=== PATIENT | female | born 1975 | race Caucasian/White ===

== ENCOUNTER 2025-01-04 15:28 | Emergency (ER) | payer OTHER, SELFPAY ==
[2025-01-04 15:41] VITALS: BP 113/73
[2025-01-04 16:22] LABS: ALT (SGPT) 219 U/L (0-35); AST (SGOT) 121 U/L (14-36); Alkaline Phosphatase 142 U/L (38-126); Blood Urea Nitrogen 14 mg/dl (7-17); Calcium 9.1 mg/dl (8.4-10.2); Carbon Dioxide 27 mmol/L (22-30); Chloride 109 mmol/L (98-107); Glucose 126 mg/dl (70-99); Potassium 4.2 mmol/L (3.5-5.1); Sodium 143 mmol/L (135-145); Total Bilirubin 0.7 mg/dl (0.2-1.3); Total Protein 6.7 g/dl (6.3-8.2); eGFR > 60.00
[2025-01-04 16:45] LABS: % Basophils 0.9 % (0-2); % Eosinophils 0.4 % (0-6); % Immature Granulocytes 0.4 % (0-0.5); % Lymphocytes 66.4 % (20.5-51.1); % Monocytes 4.9 % (1.7-9.3); Absolute Basophils 0.1 10^3/uL (0-0.2); Absolute Lymphocytes 3.8 10^3/uL (1.2-3.4); Absolute Monocytes 0.3 10^3/uL (0.1-0.6); Absolute Neutrophils 1.5 10^3/uL (1.4-6.5); Hematocrit 36.2 % (37.0-47.0); Hemoglobin 12.6 g/dL (12.0-16.0); Mean Corp Hgb Conc. 34.8 g/dL (33.0-37.0); Mean Corpuscular Hgb 30.7 pg (27.0-31.0); Mean Corpuscular Volume 88.3 fL (81.0-99.0); Mean Platelet Volume 8.8 fL (7.4-10.4); Nucleated Red Blood Cells % 0 %; Platelet Count 258 10^3/uL (130-400); Red Cell Dist. Width 13.2 % (11.5-14.5); White Blood Cell Count 5.7 10^3/uL (4.8-10.8)
[2025-01-04 17:40] LABS: Troponin I < 0.012 ng/ml
[2025-01-04 19:03] VITALS: BP 97/76
[2025-01-04 19:07] VITALS: BMI 27.1
[2025-01-04 19:16] VITALS: BP 113/73
--- NOTE | 2025-01-04 19:24 | ED.GENMED ---
History of Present Illness
<Ricardo Burns PA-C - Last Filed: 01/04/25 22:36>
General
Chief Complaint: Breathing Problem
Source: patient
Exam Limitations: none
Time Seen by Provider: 01/04/25 18:58
History of Present Illness
History of Present Illness:
49-year-old female presents with extreme fatigue headache shortness of breath over the past 3 weeks. She returned from [place] about the time this started. She has seen her family doctor. Liver functions were noted to be slightly elevated. She
had a hepatitis profile drawn as an outpatient which was normal. She was tested for Lyme strep and mono COVID and flu which were negative. She did have an elevated D-dimer performed as an outpatient which was high and was told to come here for
evaluation. She denies chest pain. No fever. No rashes or tick bites however she was tested for Lyme which was negative. She denies leg swelling or calf pain.
Past History
<Ricardo Burns PA-C - Last Filed: 01/04/25 22:36>
Past History
ED Past Medical History: None
ED Past Surgical History: None
Phy Exam
<ABEBE Beasley Last Filed: 01/04/25 22:36>
Physical Exam
Physical Exam:
General: Well-appearing female no acute respiratory distress
HEENT: Normocephalic atraumatic
Heart: No murmurs regular
Lungs: Clear no wheeze
Extremities: No cyanosis or edema
Skin: Warm no rash
Scores
<ABEBE Beasley Last Filed: 01/04/25 22:36>
Heart Failure Risk
Heart Failure Risk Score: Not Applicable
Course
<ABEBE Beasley Last Filed: 01/04/25 22:36>
Orders/Labs/Results
Orders:
Orders
01/04/25 15:47
CT Chest PE Study Stat
Comment:
Reason For Exam: D-Dimer
01/04/25 15:48
Electrocardiogram (*1) Urgent
Reason for Study: Shortness of Breath
EKG- Treatment ONCE
01/04/25 15:53
Complete Blood Count/With Diff Urgent
Comprehensive Metabolic Panel Urgent
Troponin I Urgent
01/04/25 19:21
US Abdomen Complete/Upper Urgent
Comment:
Reason For Exam: elevated LFT
01/04/25 19:[address] Non Medication Order As Directed
Physician Order: ambulatory pulse ox
Above order entered?: Yes
01/04/25 20:41
Ibuprofen [Motrin] 600 mg PO NOW STA
Abnormal Lab Results
01/04/25
15:53
RBC 4.10 L 10^6/uL
(4.20-5.40)
Hct 36.2 L %
(37.0-47.0)
Absolute Lymphs (auto) 3.8 H 10^3/uL
(1.2-3.4)
Neutrophils % 27.0 L %
(42.2-75.2)
Lymphocytes % 66.4 H %
(20.5-51.1)
Chloride 109 H mmol/L
(98-107)
Creatinine 1.1 H mg/dL
(0.6-1.0)
Glucose 126 H mg/dl
(70-99)
AST 121 H U/L
(14-36)
ALT 219 H U/L
(0-35)
Alkaline Phosphatase 142 H U/L
(38-126)
01/04/25 15:53
01/04/25 15:53
Vital Signs
Initial and Last Documented VS:
Initial Vital Signs
Temp Pulse Resp BP Pulse Ox
98.7 F 79 18 113/73 98
01/04/25 15:41 01/04/25 15:41 01/04/25 15:41 01/04/25 15:41 01/04/25 15:41
Last Documented Vital Signs
Temp Pulse Resp BP Pulse Ox
98.7 F 66 19 113/73 100
01/04/25 15:41 01/04/25 19:45 01/04/25 19:45 01/04/25 19:16 01/04/25 19:45
<Greg Swan MD - Last Filed: 01/04/25 22:19>
Orders/Labs/Results
Orders:
Orders
01/04/25 15:47
CT Chest PE Study Stat
Comment:
Reason For Exam: D-Dimer
01/04/25 15:48
Electrocardiogram (*1) Urgent
Reason for Study: Shortness of Breath
EKG- Treatment ONCE
01/04/25 15:53
Complete Blood Count/With Diff Urgent
Comprehensive Metabolic Panel Urgent
Troponin I Urgent
01/04/25 19:21
US Abdomen Complete/Upper Urgent
Comment:
Reason For Exam: elevated LFT
01/04/25 19:[address] Non Medication Order As Directed
Physician Order: ambulatory pulse ox
Above order entered?: Yes
01/04/25 20:41
Ibuprofen [Motrin] 600 mg PO NOW STA
Abnormal Lab Results
01/04/25
15:53
RBC 4.10 L 10^6/uL
(4.20-5.40)
Hct 36.2 L %
(37.0-47.0)
Absolute Lymphs (auto) 3.8 H 10^3/uL
(1.2-3.4)
Neutrophils % 27.0 L %
(42.2-75.2)
Lymphocytes % 66.4 H %
(20.5-51.1)
Chloride 109 H mmol/L
(98-107)
Creatinine 1.1 H mg/dL
(0.6-1.0)
Glucose 126 H mg/dl
(70-99)
AST 121 H U/L
(14-36)
ALT 219 H U/L
(0-35)
Alkaline Phosphatase 142 H U/L
(38-126)
01/04/25 15:53
01/04/25 15:53
Vital Signs
Initial and Last Documented VS:
Initial Vital Signs
Temp Pulse Resp BP Pulse Ox
98.7 F 79 18 113/73 98
01/04/25 15:41 01/04/25 15:41 01/04/25 15:41 01/04/25 15:41 01/04/25 15:41
Last Documented Vital Signs
Temp Pulse Resp BP Pulse Ox
98.7 F 66 19 113/73 100
01/04/25 15:41 01/04/25 19:45 01/04/25 19:45 01/04/25 19:16 01/04/25 19:45
Beckielt;Ricardo Burns PA-C - Last Filed: 01/04/25 22:36>
MDM/Problems Addressed
Differential Diagnosis Includes:
Shortness of breath fatigue headache. Differential could include viral illness versus pneumonia versus PE. Patient did have an elevated D-dimer as an outpatient this week. Check for electrolyte abnormality or anemia.
Labs reviewed notable findings include elevated LFTs. When compared to outpatient labs done last week these are slightly more elevated than last week. I did see a negative hepatitis profile drawn as an outpatient. D-dimer was elevated as an
outpatient which prompted PE study today this was negative for central pulmonary embolism. No clinical signs of heart failure. Ultrasound abdomen pending given the elevated LFTs.
<Ricardo Burns PA-C - Last Filed: 01/04/25 22:36>
*Critical Care Note
Total Time (30-74mins, 75-104mins- exclusive of procedures): Not Applicable
<Ricardo Burns PA-C - Last Filed: 01/04/25 22:36>
Update Note
Update Note:
Ultrasound abdomen shows potential fatty liver but no evidence of cholecystitis. Patient remained stable without hypoxia or tachycardia. No distress otherwise. Symptoms have been ongoing for 3 weeks. Given the shortness of breath and dyspnea
with exertion will refer patient to cardiology as outpatient. No indication for any admission at this time. Discussed with emergency room attending who saw the patient as well
ED Attending Note
<Ricardo Burns PA-C - Last Filed: 01/04/25 22:36>
-
Portions of this chart may have been created with voice recognition software.� Occasional wrong word or��sound alike� substitutions may have occurred due to the inherent limitations of voice recognition software.
<Greg Swan MD - Last Filed: 01/04/25 22:19>
ED Attending Note
Patient seen and examined by attending physician: Yes
I performed the substantive portion of visit, reviewed & personally made and approve the management plan that is documented in note by myself or HERACLIO.: Yes
ED Attending Note:
49-year-old female complaining of weeks of shortness of breath mostly with exertion and ongoing intermittent headaches. Started when returning from [place]. Mostly exertional symptoms. Headaches do not necessarily correlate with the shortness
of breath. Also has had some cough and respiratory symptoms. Some sore throat with this. Patient was sent in because of a positive D-dimer
Discharge Plan
Departure
Patient Disposition: Home (Routine Discharge)
Date of Disposition: 01/04/25
Time of Disposition: 22:35
Patient with high blood pressure during this ER visit?: No
Discharge Problem:
Dyspnea on exertion
Instructions: Chest Pain CBC Follow Up
Prescriptions:
No Action
escitalopram oxalate 10 MG tablet
10 mg PO DAILY
Referrals:
Ophelia Gomes PA [Family Provider] -
Activity Restrictions/Additional Instructions:
Return here for worsening symptoms. Please follow-up with cardiology. They should call you to discuss your symptoms
Interventions
Interventions:
*Risk Screen - Suicide Last Done: 01/04/25 15:41
*General Assessment Last Done: 01/04/25 15:41
*Neglect/Abuse Screening Last Done: 01/04/25 15:41
*ED- Fall Risk Assessment Last Done: 01/04/25 19:07
*ED COVID-19 Vaccine History Last Done: 01/04/25 19:07
ED- Cardiac Assessment Last Done: 01/04/25 19:07
ED- Pulmonary Assessment Last Done: 01/04/25 19:07
Discharge Date and Time
Print Language: LAO
[2025-01-04 20:00] VITALS: BP 102/69
[2025-01-04] MEDS: MOTRIN 600 MG PO (20:54)
[2025-01-04 21:01] VITALS: BP 105/65
--- NOTE | 2025-01-04 22:43 | ED.GENMED ---
History of Present Illness
General
Chief Complaint: Breathing Problem
Time Seen by Provider: 01/04/25 18:58
Past History
Past History
ED Past Medical History: None
ED Past Surgical History: None
Course
Orders/Labs/Results
Orders:
Orders
01/04/25 15:47
CT Chest PE Study Stat
Comment:
Reason For Exam: D-Dimer
01/04/25 15:48
Electrocardiogram (*1) Urgent
Reason for Study: Shortness of Breath
EKG- Treatment ONCE
01/04/25 15:53
Complete Blood Count/With Diff Urgent
Comprehensive Metabolic Panel Urgent
Troponin I Urgent
01/04/25 19:21
US Abdomen Complete/Upper Urgent
Comment:
Reason For Exam: elevated LFT
01/04/25 19:[address] Non Medication Order As Directed
Physician Order: ambulatory pulse ox
Above order entered?: Yes
01/04/25 20:41
Ibuprofen [Motrin] 600 mg PO NOW STA
Abnormal Lab Results
01/04/25
15:53
RBC 4.10 L 10^6/uL
(4.20-5.40)
Hct 36.2 L %
(37.0-47.0)
Absolute Lymphs (auto) 3.8 H 10^3/uL
(1.2-3.4)
Neutrophils % 27.0 L %
(42.2-75.2)
Lymphocytes % 66.4 H %
(20.5-51.1)
Chloride 109 H mmol/L
(98-107)
Creatinine 1.1 H mg/dL
(0.6-1.0)
Glucose 126 H mg/dl
(70-99)
AST 121 H U/L
(14-36)
ALT 219 H U/L
(0-35)
Alkaline Phosphatase 142 H U/L
(38-126)
01/04/25 15:53
01/04/25 15:53
Vital Signs
Initial and Last Documented VS:
Initial Vital Signs
Temp Pulse Resp BP Pulse Ox
98.7 F 79 18 113/73 98
01/04/25 15:41 01/04/25 15:41 01/04/25 15:41 01/04/25 15:41 01/04/25 15:41
Last Documented Vital Signs
Temp Pulse Resp BP Pulse Ox
98.7 F 66 19 113/73 100
01/04/25 15:41 01/04/25 19:45 01/04/25 19:45 01/04/25 19:16 01/04/25 19:45
ED Attending Note
ED Attending Note
Patient seen and examined by attending physician: Yes
I performed the substantive portion of visit, reviewed & personally made and approve the management plan that is documented in note by myself or HERACLIO.: Yes
ED Attending Note:
Patient with 2 major complaints. Mostly shortness of breath with exertion and ongoing intermittent headaches. Has been there for 3 weeks. Seen by his primary physician. Outpatient workup unremarkable. Returned from [place] at that time when
the symptoms started. However D-dimer was positive earlier and was sent for CT scan. No focal neurologic symptoms no chest pain
On exam patient is nontoxic in no distress. Lungs are clear and equal. Heart regular rate and rhythm no murmur. Abdomen soft and nontender. Extremities are unremarkable. Nonfocal. Neck is supple.
EKG has nonspecific changes. Labs are normal except for mild LFT elevation. CT for pulmonary emboli negative. Cardiac testing negative.
Low suspicion for serious etiology. However with some exertional shortness of breath and nonspecific EKG changes warrants close cardiac follow-up. Will be plugged into the cardiac follow-up. Patient and family are comfortable with this approach.
No serious etiology for headache found. Neurologically stable neck supple no meningeal encephalitis symptoms.
-
Portions of this chart may have been created with voice recognition software.� Occasional wrong word or��sound alike� substitutions may have occurred due to the inherent limitations of voice recognition software.
Discharge Plan
Departure
Patient Disposition: Home (Routine Discharge)
Date of Disposition: 01/04/25
Time of Disposition: 22:35
Patient with high blood pressure during this ER visit?: No
Discharge Problem:
Dyspnea on exertion
Instructions: Chest Pain CBC Follow Up
Prescriptions:
No Action
escitalopram oxalate 10 MG tablet
10 mg PO DAILY
Referrals:
Ophelia Gomes PA [Family Provider] -
Activity Restrictions/Additional Instructions:
Return here for worsening symptoms. Please follow-up with cardiology. They should call you to discuss your symptoms
Interventions
Interventions:
*Risk Screen - Suicide Last Done: 01/04/25 15:41
*General Assessment Last Done: 01/04/25 15:41
*Neglect/Abuse Screening Last Done: 01/04/25 15:41
*ED- Fall Risk Assessment Last Done: 01/04/25 19:07
*ED COVID-19 Vaccine History Last Done: 01/04/25 19:07
*Nursing Disposition Last Done: 01/04/25 22:44
ED- Cardiac Assessment Last Done: 01/04/25 19:07
ED- Pulmonary Assessment Last Done: 01/04/25 19:07
Discharge Date and Time
Print Language: CHINESE
== END 2025-01-04 22:45 | disposition home or self-care (01) ==
LOC: EMR 15:28
PROVIDERS: Student in an Organized Health Care Education/Training Program; EMERGENCY PHYSICIAN Emergency Medicine; FAMILY PHYSICIAN Physician Assistant Medical
DX: R06.09 Other forms of dyspnea (principal)
CPT/HCPCS: 99285; 71275; 76700; 80053; 84484; 85025; 93005; Q9967

== ENCOUNTER → 2025-02-06 13:03 | Outpatient (REF) | payer OTHER, SELFPAY | LOC: RCS 13:03 | PROVIDERS: ATTENDING PHYSICIAN Internal Medicine Cardiovascular Disease; FAMILY PHYSICIAN Physician Assistant Medical | DX: R06.02 Shortness of breath (principal); R79.89 Other specified abnormal findings of blood chemistry; R53.83 Other fatigue | CPT/HCPCS: 93306 ==